=== PATIENT | male | born 1975 | race Asian ===

== ENCOUNTER 2022-03-28 09:17 | Outpatient (REF) | payer OTHER, SELFPAY ==
--- NOTE | ~2022-03-28 | XR_ITS ---
EXAMINATION: XR CHEST CLINICAL INFORMATION: Rule out TB. COMPARISON: None TECHNIQUE: 2 views of the chest. FINDINGS: The cardiac and mediastinal contours are normal. There is biapical pleural thickening and increased reticular nodular markings at the lung apices. The lungs are otherwise clear. There is no pleural effusion or pneumothorax. There are degenerative changes of the spine. XR/XR chest 2V IMPRESSION: Biapical pleural thickening and increased reticular nodular markings at the lung apices. This could be related to old TB.
== END 2022-03-28 09:18 | disposition home or self-care (01) ==
LOC: HO.HMGCX 09:17
PROVIDERS: Visit Provider Internal Medicine
DX: R76.12 Nonspecific reaction to cell mediated immunity measurement of gamma interferon antigen response without active tuberculosis (principal)
CPT/HCPCS: 71046